=== PATIENT | female | born 1985 | race Caucasian/White ===

== ENCOUNTER 2016-08-03 01:57 | Emergency (ER) | payer MEDICAID ==
[~2016-08-03] VITALS: Ht 170.2 cm; Wt 88.9 kg
[~2016-08-03 01:57] MED LIST: FLUO20CA19 PO; TOPI25TA32 PO
[2016-08-03] MEDS ORDERED: LIDOCAINE 1%-EPI 1:100K, 20ML ONE (03:23)
[2016-08-03 04:12] VITALS: BP 130/86
== END 2016-08-03 04:13 | disposition home or self-care (01) ==
LOC: ED 04:00
DX: L02.411 Cutaneous abscess of right axilla (principal); N61.1 Abscess of the breast and nipple; Z90.89 Acquired absence of other organs
CPT/HCPCS: 10060; 99283

== ENCOUNTER 2017-02-06 13:26 | Emergency (ER) | payer MEDICAID ==
[~2017-02-06] VITALS: Ht 170.2 cm; Wt 93.1 kg
[2017-02-06] MEDS ORDERED: ACETAMINOPHEN 325 MG TABLET PO ONE ×2 (14:00→15:00)
[2017-02-06] MEDS ORDERED: ONDANSETRON 2MG/ML, 2ML IVPush ONE (14:00)
[2017-02-06] MEDS ORDERED: SODIUM CHLORIDE FLUSH 10ML SYR IVF ONE (14:00)
[2017-02-06] MEDS ORDERED: SODIUM CHLORIDE 0.9% 1,000ML IVBOLUS ONE (14:00)
[2017-02-06 14:18] LABS: RAPID INFLUENZA A Negative (Negative); RAPID INFLUENZA B Negative (Negative)
[2017-02-06 14:19] LABS: HEMATOCRIT 38.7 % (34.6-47.8); HEMOGLOBIN 13.1 g/dL (11.7-16.4); WHITE BLOOD COUNT 5.2 x10^3/uL (3.4-10)
[2017-02-06 14:32] LABS: BLOOD UREA NITROGEN 9 mg/dL (7-18)
[2017-02-06] MEDS ORDERED: SODIUM CHLORIDE 0.9% 1,000 ML IV ONE (14:37)
[2017-02-06] MEDS ORDERED: ACETAMINOPHEN 325 MG TABLET ONE (15:18)
[2017-02-06] MEDS ORDERED: ONDANSETRON 2MG/ML, 2ML ONE (15:18)
[2017-02-06] MEDS ORDERED: METO25TA35 PO (15:31)
[2017-02-06 16:45] VITALS: BP 107/70
== END 2017-02-06 16:56 | disposition home or self-care (01) ==
LOC: ED 16:15
DX: R50.9 Fever, unspecified (principal)
CPT/HCPCS: 36415; 71010; 76830; 80048; 81001; 82040; 83605; 84702; 85025; 87040; 87086; 87400; 96360; 99285; J7030

== ENCOUNTER 2017-02-28 22:41 | Emergency (ER) | payer MEDICAID ==
[~2017-02-28] VITALS: Ht 170.2 cm; Wt 87.0 kg
[~2017-02-28 22:41] MED LIST changes: +METO25TA35 PO
[2017-02-28 22:49] VITALS: BP 124/85
[2017-02-28] MEDS ORDERED: LIDOCAINE 1%, 20ML ONE (23:10)
[2017-02-28] MEDS ORDERED: CEFAZOLIN 1,000 MG IM ONE (23:30)
[2017-02-28] MEDS ORDERED: LIDOCAINE 1%, 10ML INFIL ONE (23:30)
[2017-02-28] MEDS ORDERED: CEFAZOLIN 1,000 MG ONE (23:42)
== END 2017-03-01 00:29 | disposition home or self-care (01) ==
LOC: ED 23:08
DX: L03.115 Cellulitis of right lower limb (principal); L03.114 Cellulitis of left upper limb; L02.415 Cutaneous abscess of right lower limb; L02.414 Cutaneous abscess of left upper limb; F19.10 Other psychoactive substance abuse, uncomplicated; Z90.89 Acquired absence of other organs
CPT/HCPCS: 10061; 96372; 99284; J0690

== ENCOUNTER 2017-03-01 21:41 | Emergency (ER) | payer MEDICAID ==
[~2017-03-01] VITALS: Ht 170.2 cm; Wt 87.7 kg
[2017-03-01 22:22] VITALS: BP 138/74
== END 2017-03-01 22:24 | disposition home or self-care (01) ==
LOC: ED 22:03
DX: L02.415 Cutaneous abscess of right lower limb (principal); B19.20 Unspecified viral hepatitis C without hepatic coma
CPT/HCPCS: 99283

== ENCOUNTER 2017-03-06 01:44 | Emergency (ER) | payer MEDICAID ==
[~2017-03-06] VITALS: Ht 170.2 cm; Wt 86.4 kg
[2017-03-06 01:45] VITALS: BP 119/79
== END 2017-03-06 02:30 | disposition home or self-care (01) ==
LOC: ED 02:27
DX: Z48.01 Encounter for change or removal of surgical wound dressing (principal); F11.10 Opioid abuse, uncomplicated
CPT/HCPCS: 99283

== ENCOUNTER 2018-06-12 07:10 | Emergency (ER) | payer MEDICAID ==
[~2018-06-12] VITALS: Ht 170.2 cm; Wt 99.0 kg
[2018-06-12 07:12] VITALS: BP 123/85
--- NOTE | 2018-06-12 08:03 | NUR ---
pt in bed. provider in room. ua collected and sent. pt no wants or needs at this time.
[2018-06-12 08:20] LABS: HCG UR SG 1.032 (1.003-1.030); MICROSCOPIC NOT IND
[2018-06-12 08:23] LABS: CULTURE INDICATED? NO
== END 2018-06-12 09:48 | disposition home or self-care (01) ==
LOC: ED 09:38
DX: R10.9 Unspecified abdominal pain (principal); R30.0 Dysuria; H92.02 Otalgia, left ear; Z90.89 Acquired absence of other organs
CPT/HCPCS: 81003; 81025; 99283

== ENCOUNTER 2019-05-13 10:50 | Emergency (ER) | payer BC, MEDICAID, OTHER ==
[~2019-05-13] VITALS: Ht 170.2 cm; Wt 94.0 kg
[2019-05-13 11:02] VITALS: BP 138/83
--- NOTE | 2019-05-13 11:11 | NUR ---
PT HERE FOR BLOOD HCG TO CONFIRM AFTER HOME PREG TEST POS X2. LMP: 12-APR-2019.
== END 2019-05-13 12:26 | disposition home or self-care (01) ==
LOC: ED 12:06
DX: O26.891 Other specified pregnancy related conditions, first trimester (principal); Z90.89 Acquired absence of other organs; Z3A.08 8 weeks gestation of pregnancy
CPT/HCPCS: 36415; 84703; 99283

== ENCOUNTER 2020-01-06 17:35 | Inpatient (IN) | payer MEDICAID, OTHER ==
[~2020-01-06] VITALS: Ht 167.6 cm; Wt 95.5 kg
[2020-01-06] MEDS: LACTATED RINGERS 1,000 ML IVBOLUS PRN ×2 (17:46→18:46)
[2020-01-06] MEDS ORDERED: LACTATED RINGERS 1,000 ML IV SCH ×2 (17:47→18:56)
[2020-01-06] MEDS ORDERED: D5%-LACTATED RINGERS 1,000 ML IV SCH (17:47)
[2020-01-06] MEDS ORDERED: OXYTOCIN 30U/ 0.9% NaCL 500ML 500 ML IV ONE (17:47)
[2020-01-06] MEDS ORDERED: TERBUTALINE 1 MG/ML, 1ML IVPush PRN (18:00)
[2020-01-06] MEDS ORDERED: FENTANYL PF 100 MCG/2ML IVPush PRN (18:00)
[2020-01-06] MEDS ORDERED: CALCIUM CARBONATE 500 MG TAB.CHEW PO PRN (18:00)
[2020-01-06] MEDS ORDERED: FENTANYL PF 100 MCG/2ML IV PRN (18:00)
[2020-01-06] MEDS ORDERED: TERBUTALINE 1 MG/ML, 1ML SQ PRN (18:00)
[2020-01-06] MEDS ORDERED: ONDANSETRON 2MG/ML, 2ML IVPush PRN (18:00)
[2020-01-06] MEDS ORDERED: MISOPROSTOL 200 MCG TABLET ONE (18:08)
[2020-01-06] MEDS ORDERED: LIDOCAINE 1%, 20ML ONE (18:08)
[2020-01-06] MEDS ORDERED: OXYTOCIN 30U/ 0.9% NaCL 500ML 500 ML ONE ×2 (18:08→22:41)
[2020-01-06] MEDS ORDERED: NEWBORN KIT ONE (18:08)
[2020-01-06 18:16] LABS: BASOPHILS # (AUTO) 0.02 x10^3/uL (0-0.1); BASOPHILS % (AUTO) 0 % (0-1); EOSINOPHILS # (AUTO) 0.05 x10^3/uL (0-0.4); EOSINOPHILS % (AUTO) 1 % (1-7); LYMPHOCYTES # (AUTO) 1.92 x10^3/uL (1-3.4); LYMPHOCYTES % (AUTO) 21 % (22-44); MD NO; MEAN CORPUSCULAR HGB CONC 33.4 g/dL (32.4-35.8); MEAN CORPUSCULAR VOLUME 89.8 fL (80-100); MEAN PLATELET VOLUME 8.9 fL (7.4-10.4); MONOCYTES # (AUTO) 0.47 x10^3/uL (0.2-0.8); MONOCYTES % (AUTO) 5 % (2-9); NEUTROPHILS # (AUTO) 6.82 x10^3/uL (1.8-6.8); NEUTROPHILS % (AUTO) 74 % (42-75); PLATELET COUNT 241 x10^3/uL (130-400); RED BLOOD COUNT 3.94 x10^6/uL (3.82-5.3); RED CELL DISTRIBUTION WIDTH 12.7 % (9.6-15.2)
[2020-01-06] MEDS ORDERED: FENTANYL/BUPIV./NS/PF 250 ML EPIDCONT ONE (18:19)
[2020-01-06] MEDS ORDERED: FENTANYL/BUPIV./NS/PF 250 ML EPIDCONT SCH (18:56)
[2020-01-06] MEDS ORDERED: EPHEDRINE 50 MG/ML, 1ML IVPush PRN (19:00)
[2020-01-06] MEDS ORDERED: NALOXONE 0.4 MG/ML, 1ML IVPush PRN (19:00)
[2020-01-06] MEDS ORDERED: ONDANSETRON 2MG/ML, 2ML ONE (19:52)
[2020-01-06 20:08] LABS: AMPHETAMINE SCREEN, URINE Positive (Negative); BARBITURATE SCREEN, URINE Negative (Negative); BENZODIAZEPINE SCREEN, URINE Negative (Negative); CANNABINOID SCREEN, URINE Negative (Negative); COCAINE SCREEN, URINE Negative (Negative); METHADONE SCREEN, URINE Negative (Negative); OPIATE SCREEN, URINE Positive (Negative)
[2020-01-06] MEDS ORDERED: OXYTOCIN 30U/ 0.9% NaCL 500ML 500 ML IV PRN (20:30)
[2020-01-06] MEDS: OXYTOCIN 30U/ 0.9% NaCL 500ML 500 ML IV SCH (21:13)
[2020-01-06] MEDS ORDERED: IBUPROFEN 600 MG TABLET PO PRN (21:30)
[2020-01-06] MEDS ORDERED: ONDANSETRON 2MG/ML, 2ML IV PRN (21:30)
[2020-01-06] MEDS ORDERED: SIMETHICONE 80 MG CHEW TAB PO PRN (21:30)
[2020-01-06] MEDS ORDERED: HYDROcodone/APAP 5/325 TABLET PO PRN ×2 (21:30)
[2020-01-06] MEDS ORDERED: ACETAMINOPHEN 325 MG TABLET PO PRN (21:30)
[2020-01-06] MEDS ORDERED: MISOPROSTOL 200 MCG TABLET PR PRN (21:30)
[2020-01-06] MEDS ORDERED: DOCUSATE 100 MG CAPSULE PO PRN (21:30)
[2020-01-06] MEDS ORDERED: IBUPROFEN 600 MG TABLET ONE (22:43)
[2020-01-06 23:20] VITALS: BP 132/77
[2020-01-07 04:00] VITALS: BP 149/94
[2020-01-07 05:56] LABS: BASOPHILS # (AUTO) 0.01 x10^3/uL (0-0.1); BASOPHILS % (AUTO) 0 % (0-1); EOSINOPHILS # (AUTO) 0.02 x10^3/uL (0-0.4); EOSINOPHILS % (AUTO) 0 % (1-7); LYMPHOCYTES # (AUTO) 1.66 x10^3/uL (1-3.4); LYMPHOCYTES % (AUTO) 13 % (22-44); MD NO; MEAN CORPUSCULAR HEMOGLOBIN 29.9 pg (27.0-34.8); MEAN CORPUSCULAR HGB CONC 33.4 g/dL (32.4-35.8); MEAN CORPUSCULAR VOLUME 89.7 fL (80-100); MEAN PLATELET VOLUME 9.2 fL (7.4-10.4); MONOCYTES # (AUTO) 0.47 x10^3/uL (0.2-0.8); MONOCYTES % (AUTO) 4 % (2-9); NEUTROPHILS % (AUTO) 83 % (42-75); PLATELET COUNT 242 x10^3/uL (130-400); RED BLOOD COUNT 3.89 x10^6/uL (3.82-5.3); RED CELL DISTRIBUTION WIDTH 12.9 % (9.6-15.2)
[2020-01-07 05:57] VITALS: BP 134/83
[2020-01-07] MEDS: OXYTOCIN 30U/ 0.9% NaCL 500ML 500 ML IV SCH (07:13)
[2020-01-07 08:00] VITALS: BP 131/87
[2020-01-07] MEDS ORDERED: PRENATAL VIT/IRON/FA 1 EACH TABLET PO SCH (09:00)
== END 2020-01-07 12:10 | disposition home or self-care (01) | DRG 806 ==
LOC: LDOP 17:35 → LDIP 17:42 → 2NW 22:55
PROVIDERS: ADMIT Obstetrics & Gynecology; ATTEND Obstetrics & Gynecology
PROC: 10E0XZZ Delivery of Products of Conception, External Approach (ICD-10-PCS; principal; 2020-01-06)
PROC: 3E0R3BZ Introduction of Anesthetic Agent into Spinal Canal, Percutaneous Approach (ICD-10-PCS; 2020-01-06)
PROC: 00HU33Z Insertion of Infusion Device into Spinal Canal, Percutaneous Approach (ICD-10-PCS; 2020-01-06)
DX: O69.81X0 Labor and delivery complicated by cord around neck, without compression, not applicable or unspecified (principal); O98.42 Viral hepatitis complicating childbirth; Z37.0 Single live birth; O99.334 Smoking (tobacco) complicating childbirth; F17.210 Nicotine dependence, cigarettes, uncomplicated; Z3A.38 38 weeks gestation of pregnancy; B19.20 Unspecified viral hepatitis C without hepatic coma
CPT/HCPCS: 36415; 80307; 82803; 85025; 86592; 86850; 86900; 87635; 88307; G0378; J2405; J2590; J3010; J7120